=== PATIENT | male | born 1955 | race Caucasian/White ===

== ENCOUNTER 2020-03-03 16:10 | Inpatient (IN) | payer MEDICARE ==
[~2020-03-03] VITALS: Ht 188 cm; Wt 91.4 kg
[~2020-03-03 16:10] MED LIST: Benadryl 50 mg50 MG PO; CYCL10 PO; Naprosyn500 MG PO; Norco 10-325 T1 EACH PO; Pepcid20 MG PO; Prednisone20 MG PO
[2020-03-03 16:51] LABS: BASOPHILS ABSOLUTE AUTO 0.04 K/mm3 (0.00-0.23); BASOPHILS PERCENT AUTO 0 % (0-2); EOSINOPHILS ABSOLUTE AUTO 0.09 K/mm3 (0.00-0.68); EOSINOPHILS PERCENT AUTO 1 % (0-6); Hematocrit 37.4 % (37.0-53.0); Hemoglobin 12.5 g/dL (13.5-17.5); IMMATURE GRAN ABSOLUTE AUTO 0.09 K/mm3 (0.00-0.10); IMMATURE GRAN PERCENT AUTO 1 % (0-1); LYMPHOCYTES ABSOLUTE AUTO 1.68 K/mm3 (0.84-5.20); LYMPHOCYTES PERCENT AUTO 17 % (21-46); MONOCYTES ABSOLUTE AUTO 0.88 K/mm3 (0.16-1.47); MONOCYTES PERCENT AUTO 9 % (4-13); Mean Corpuscular HGB 36.8 pg (26.0-34.0); Mean Corpuscular HGB Conc 33.4 g/dL (31.5-36.5); Mean Corpuscular Volume 110 fL (80-100); Mean Platelet Volume 10.7 fL (9.1-12.4); NEUTROPHILS ABSOLUTE AUTO 6.91 K/mm3 (1.96-9.15); NEUTROPHILS PERCENT AUTO 71 % (41-73); Platelet Count 143 K/mm3 (150-400); RDW Coefficient Variation 15.2 % (11.7-14.2); RDW Standard Deviation 61.8 fL (35.1-46.3); White Blood Cell Count 9.69 K/mm3 (4.00-11.30)
[2020-03-03 17:12] LABS: Alanine Aminotransfer (ALT/SGP 41 U/L (12-78); Albumin, Blood 2.4 g/dL (3.4-5.0); Albumin/Globulin Ratio 0.4 (0.8-1.8); Alk Phos 183 U/L (50-136); Anion Gap 8 mmol/L (6-16); Aspartate Aminotrans (AST/SGOT 92 U/L (12-37); Bilirubin, Total 6.7 mg/dL (0.1-1.0); Blood Urea Nitrogen 41 mg/dL (8-24); Bun/Creatinine Ratio 20.7 (12.0-20.0); CO2, Blood 23 mmol/L (21-32); Calcium, Blood 9.3 mg/dL (8.5-10.1); Chloride, Blood 112 mmol/L (98-108); Creatinine, Blood 1.98 mg/dL (0.60-1.20); Ethanol (Alcohol), Blood, Med <3 mg/dL; Globulin, Blood 5.4 g/dL (2.2-4.0); Glomerular Filtration Rate 36 (60-); Glucose, Blood 138 mg/dL (70-99); Potassium, Blood 4.3 mmol/L (3.5-5.5); Sodium, Blood 143 mmol/L (136-145); Total Protein, Blood 7.8 g/dL (6.4-8.2)
[2020-03-03 19:08] LABS: Source, Urine Clean Catch
[2020-03-03 19:11] LABS: Appearance, Urine Clear (Clear); Blood, Urine Neg (Neg); Color, Urine Amber (P-Yellow); Glucose Qualitative, Urine Neg (Neg); Ketones, Urine 1+ (Neg); Leukocyte Esterase, Urine 1+ (Neg); Nitrite, Urine Neg (Neg); Protein, Urine 1+ (Neg); Urobilinogen, Urine 2+ (Normal)
[2020-03-03 19:32] LABS: Bilirubin, Urine 1+ (Neg)
[2020-03-03 19:34] LABS: Bacteria Few /hpf; Hyaline Casts 0-2 /lpf (0-2); Red Blood Cells, Urine 0-2 /hpf (0-2); Squamous Epithelial Cells Few /hpf (Few)
[2020-03-03 19:43] LABS: International Normalized Ratio 1.36; Prothrombin Time Results 14.3 Sec (9.7-11.5)
[2020-03-03 19:56] LABS: U Amphetamine Screen Not Detected; U Barbituate Screen Not Detected; U Benzodiazapine Screen Not Detected; U Cocaine Screen Not Detected; U Methadone Screen Not Detected; U Methamphetamine Screen Not Detected; U Opiates Screen Not Detected
[2020-03-03 19:57] LABS: U Buprenorphine Screen Not Detected; U Cannabinoids Screen DETECTED; U Oxycodone Screen Not Detected; U Phencyclidine Screen Not Detected; U Propoxyphene Screen Not Detected
[2020-03-03 20:12] LABS: Automated BF WBC Count 0.051 K/mm3 (0-999); Body Fluid WBC Count 51 /mm3 (0-999)
[2020-03-03 20:19] LABS: Magnesium, Blood 1.5 mg/dL (1.6-2.4); Thyroid Stimulating Hormone 4.45 uIU/mL (0.360-4.800); Troponin I 0.123 ng/mL (0.000-0.040)
[2020-03-03 20:22] LABS: RBC Count, Body Fluid 6 /mm3 (0-0)
[2020-03-03 20:23] LABS: Appearance, Body Fluid Clear (Clear); Color, Body Fluid Yellow (None-Yellow)
[2020-03-03 20:26] LABS: Total Cell Count, Body Fluid 100
--- NOTE | 2020-03-04 01:44 | NUR ---
PATIENT ARRIVED TO ROOM 353 AT 2322 VIA STRETCHER. HE IS ALERT AND ORIENTED X2. DENIES ANY PROBLEMS ASKED ABOUT IN HIS MEDICAL HISTORY QUESTIONAIRE. HE IS CONFUSED AND FORGETFUL, BUT IS COOPORATIVE WITH TASKS WHEN EXPLAINED TO HIM. TELE IN PLACE. SKIN TEAR CLEANED AND DRESSED.
[2020-03-04 05:10] LABS: BASOPHILS ABSOLUTE AUTO 0.04 K/mm3 (0.00-0.23); BASOPHILS PERCENT AUTO 0 % (0-2); EOSINOPHILS ABSOLUTE AUTO 0.14 K/mm3 (0.00-0.68); EOSINOPHILS PERCENT AUTO 2 % (0-6); Hematocrit 31.7 % (37.0-53.0); Hemoglobin 10.5 g/dL (13.5-17.5); IMMATURE GRAN ABSOLUTE AUTO 0.07 K/mm3 (0.00-0.10); IMMATURE GRAN PERCENT AUTO 1 % (0-1); LYMPHOCYTES ABSOLUTE AUTO 1.89 K/mm3 (0.84-5.20); LYMPHOCYTES PERCENT AUTO 20 % (21-46); MONOCYTES PERCENT AUTO 12 % (4-13); Mean Corpuscular HGB 36.6 pg (26.0-34.0); Mean Corpuscular HGB Conc 33.1 g/dL (31.5-36.5); Mean Corpuscular Volume 111 fL (80-100); Mean Platelet Volume 10.6 fL (9.1-12.4); NEUTROPHILS PERCENT AUTO 65 % (41-73); Platelet Count 104 K/mm3 (150-400); RDW Coefficient Variation 15.5 % (11.7-14.2); RDW Standard Deviation 62.9 fL (35.1-46.3); Red Blood Cell Count 2.87 M/mm3 (4.30-5.90); White Blood Cell Count 9.34 K/mm3 (4.00-11.30)
[2020-03-04 05:25] LABS: International Normalized Ratio 1.48; Prothrombin Time Results 15.5 Sec (9.7-11.5)
[2020-03-04 05:42] LABS: Albumin, Blood 2.5 g/dL (3.4-5.0); Albumin/Globulin Ratio 0.6 (0.8-1.8); Bilirubin, Total 5.8 mg/dL (0.1-1.0); Bun/Creatinine Ratio 20.8 (12.0-20.0); Calcium, Blood 8.6 mg/dL (8.5-10.1); Creatinine, Blood 1.92 mg/dL (0.60-1.20); Globulin, Blood 4.1 g/dL (2.2-4.0); Potassium, Blood 4.4 mmol/L (3.5-5.5); Total Protein, Blood 6.6 g/dL (6.4-8.2); Troponin I 0.114 ng/mL (0.000-0.040)
--- NOTE | 2020-03-04 06:31 | NUR ---
SHIFT SUMMARY PATIENT ALERT AND ORIENTED X2, HE IS CONFUSED AND SLIGHTLY IRRITABLE, BUT DOES COOPORATE WITH CARE GIVEN TO HIM. IV IN HIS LEFT AC BEGAN LEAKING BLOOD AND WAS REMOVED. IV IN LEFT UPPER ARM PATENT AND INFUSING. NEW IV PLACED IN RIGHT UPPER ARM AND IS PATENT. BED IN LOWEST POSITION WITH WHEELS LOCKED AND ALARM ON. CALL LIGHT WITHIN REACH. REPORT GIVEN TO ONCOMING RN.
--- NOTE | 2020-03-04 11:24 | NUR ---
Echocardiogram completed.
--- NOTE | 2020-03-04 13:11 | NUR ---
Received call from Bedside RN Giovanna reporting family has arrived and is waiting outside to discuss decisions. Requested Giovanna to imform family this RN needs time to review case and can meet with one family member this afternoon. Pt resting in bed with his eyes closed upon arrival. Pt's son Ramirez at bedside. Difficult to assess Pt's orientation and he becomes agitated with questions. Assisted Pt with drinking his milk per Pt's request. Pt drifts back to sleep. Engaged in therapeutic conversation with son Ramirez. Provided update on plan of care. Discussed the importance of appointing decision makers for the future. Ramirez reports due to his inability to retain information well his sister Cony (Pt's daugher) would be primary decision maker and he would be alternate. Educated on disease process and the potential of Pt's life span being dramatically shortened without life style change. Discussed the potential of future care needs as disease progresses. Discussed the importance of family considering Pt's code status and whether Pt would want CPR. Ramirez confirms reports that Pt's has cognitive impairment. Pt's is Ramirez and Cony's step mother. Offered therapeutic listening and answered questions. Ramirez expresses appreciation and reports no other concerns at this time. Ramirez will report what he has learned to rest of family. Spoke with Bedside OSITO Heredia and discussed case. Spoke with Dr Wesley and discussed case. Palliative Care will remain available.
[2020-03-04 14:25] LABS: Albumin, Blood 2.5 g/dL (3.4-5.0)
--- NOTE | 2020-03-04 17:58 | NUR ---
PT AOX1-2 WITH CONFUSION. PT HAS BEEN UNCOMFORTABLE ALL DAY DUE TO HIS DISTENDED ABDOMEN. PT HAS HAD FAMILY IN TO SPEAK WITH THE DOCTOR AND PALLIATIVE CARE. PT WAS TAKEN DOWN FOR PARACENTESIS AND 10L WAS REMOVED AND ALBUMIN STARTED. PT STILL WANTING TO LAY CURLED UP. PT HAS HAD CIWAS AT A 7 AND HAS BEEN TREATED PER EMAR. WILL CONTINUE TO MONITOR. PT'S BP WAS 89/[address] DINH WAS NOTIFIED. MIDORINE WAS ADDED TO EMAR PER DR DINH'S ORDER. WILL CONTINUE TO MONITOR.
[2020-03-04 19:35] LABS: Automated BF WBC Count 0.055 K/mm3 (0-999); Body Fluid WBC Count 55 /mm3 (0-999)
[2020-03-04 19:42] LABS: pH, Body Fluid 7.7
[2020-03-04 19:55] LABS: Albumin, Body Fluid 0.5 g/dL
[2020-03-04 19:56] LABS: Glucose, Body Fluid 133 mg/dL; Lactate Dehydrogenase, Body Fl 55 U/L; Protein, Body Fluid 0.9 g/dL
[2020-03-04 19:58] LABS: Appearance, Body Fluid Clear (Clear); Color, Body Fluid Yellow (None-Yellow); RBC Count, Body Fluid 27 /mm3 (0-0)
[2020-03-04 20:07] LABS: Total Cell Count, Body Fluid 100
--- NOTE | 2020-03-05 00:14 | NUR ---
PATIENT IS CONFUSED AND LETHARGIC. HE IS UNABLE TO ANSWER ORIENTATION QUESTIONS BEYOND HIS NAME AND DATE OF . YE IS VERY MUMBLED AND DIFFICULT TO UNDERSTAND. HE IS IRRITABLE AND EASILY AGITATED WHEN WORKING WITH HIM. VITALS TAKEN AND PATIENT WAS HYPOTENSIVE AND PATIENT VOMITED YELLOW FLUID ON HIS BED. THIS RN ALSO FOUND A LUMP ON THE RIGHT SIDE OF THE PATIENT'S NECK ALONG HIS JAW LINE. DISCUSSED SITUATION WITH CHARGE NURSE, NATE AGUILAR. WILL REASSESS VITALS IN ONE HOUR.
[2020-03-05 05:00] LABS: Hematocrit 32.5 % (37.0-53.0); Hemoglobin 10.7 g/dL (13.5-17.5); Mean Corpuscular HGB Conc 32.9 g/dL (31.5-36.5); Mean Corpuscular Volume 113 fL (80-100); Platelet Count 104 K/mm3 (150-400); RDW Coefficient Variation 15.6 % (11.7-14.2); RDW Standard Deviation 64.1 fL (35.1-46.3); Red Blood Cell Count 2.89 M/mm3 (4.30-5.90); White Blood Cell Count 8.75 K/mm3 (4.00-11.30)
[2020-03-05 05:15] LABS: International Normalized Ratio 1.65; Prothrombin Time Results 17.2 Sec (9.7-11.5)
[2020-03-05 05:27] LABS: Albumin, Blood 3.1 g/dL (3.4-5.0); Albumin/Globulin Ratio 1.1 (0.8-1.8); Bilirubin, Total 5.3 mg/dL (0.1-1.0); Bun/Creatinine Ratio 18.7 (12.0-20.0); Calcium, Blood 8.9 mg/dL (8.5-10.1); Creatinine, Blood 1.87 mg/dL (0.60-1.20); Globulin, Blood 2.7 g/dL (2.2-4.0); Potassium, Blood 4.4 mmol/L (3.5-5.5); Total Protein, Blood 5.8 g/dL (6.4-8.2)
--- NOTE | 2020-03-05 06:21 | NUR ---
SHIFT SUMMARY PATIENT HAS BEEN LETHARGIC ALL NIGHT, RESPONDS TO VERBAL STIMULUS BUT IS DIFFICULT TO UNDERSTAND DUE TO HIS MUMBLING. HE DENIES ALL SYMPTOMS OF WITHDRAWAL WHEN ASKED, BUT IS EASILY AGITATED WHEN CARE IS PROVIDED FOR HIM. HE RESISTS ALL CARE, AND SWEARS WHEN STAFF ARE TRYING TO WORK WITH HIM. BOTH IVS ARE PATENT AND HAVE BEEN FLUSHED. BED IN LOWEST POSITION WITH WHEELS LOCKED AND ALARM ON. CALL LIGHT WITHIN REACH. REPORT GIVEN TO ONCOMING RN.
--- NOTE | 2020-03-05 17:00 | NUR ---
PT AOX1-2 DEPENDING ON HOW AWAKE HE IS. PT HAS BEEN WANTING TO SLEEP MOST OF THE DAY. PT WAS ABLE TO DRINK A COUPLE OF ENSURES TODAY, BUT DID NOT WANT TO EAT ANY FOOD FROM HIS TRAY. PT HAS TO BE INSTUCTED TO SWALLLOW PILLS, BUT WILL WITH INSTRUCTION. PT TREATED FOR PAIN PER EMAR. PT CONTINUES TO HAVE LOW BPs SYTOLIC RUNNING IN THE 90s. DR DINH IS AWARE AT THIS TIME. WILL CONTINUE TO MONITOR.
--- NOTE | 2020-03-05 18:36 | NUR ---
NOTIFIED DR DINH PT HAS BEEN VERY SLEEPY THIS AFTERNOON AND LOW BP CONTINUES TO MAINTAIN SYTOLIC 95. DR DINH DC'D LIBRIUM AND ADDED ATIVAN TO EMAR. WILL CONTINUE TO MONITOR.
--- NOTE | 2020-03-06 05:06 | NUR ---
SUMMARY: PT A/O TO SELF ONLY AND POSSIBLY FAMILY. HE'S VERY DROWSY BUT WAKEFUL TO VOICE AND SLEPT MAJORITY OF SHIFT. CIWAS WERE 3-5, NO PRN ATIVAN NEEDED. HE DOESN'T INTERACT MUCH AND WASN'T ABLE TO ANSWER Q'S BUT DID MUTTER SOME WORDS/NOISES. HE'S VERY STIFF, WEAK AND DECONDITIONED, ON AIRBED FOR SBD PREVENTION AND TURN SCHEDULE WAS MAINTAINED. PT INCONTINENT OF URINE/STOOL, X2 LARGE LOOSE STOOLS HAD. ATTENDS CHANGED PRN W/SKIN CARE DONE. RN HELD SENNA BUT LACTULOSE WAS RECIEVED AT HS. DE DIDN'T APPEAR IN ANY PAIN OR DISTRESS. ABDO REMAINS FIRM/DISTENDED FROM ASCITES. NO ACUTE CHANGES, VSS AND AFEBRILE. OCTEOTRIDE INFUSES VIA L.UA PG. PT CONT'S TO HAVE BP'S 90'S/60'S BUT PT IS ASYMPTOMATIC AND CONT'S NSR AT 70'S BPM PER TELEMETRY. WCTM/REPORT TO DAY RN.
[2020-03-06 07:06] LABS: Bun/Creatinine Ratio 20.9 (12.0-20.0); Calcium, Blood 9.2 mg/dL (8.5-10.1); Creatinine, Blood 1.91 mg/dL (0.60-1.20); Potassium, Blood 4.2 mmol/L (3.5-5.5)
--- NOTE | 2020-03-06 09:32 | NUR ---
FREQUENT DIARRHEA NOTIFIED DR. DINH OF FREQUENT BOWEL MOVEMENTS. RECEIVED VERBAL ORDER TO REDUCE FREQUENCY OF LACTULOSE FROM TID TO BID. EMAR UPDATED.
--- NOTE | 2020-03-06 18:39 | NUR ---
Shift Summary Patient has been lethargic for most of the day, unresponsive until approximately 1630 this afternoon. Patient became increasingly restless asking for water. Mild swelling to R angle of mandible noted this shift, unpainful, absent of redness. CIWA: 0-3. Had 1 BM this shift, med loose. Daughter Cony called for updates and stated will not be in to visit patient d/t living far away. Will pass on to palliative care RN for them to call and discuss advanced care planning over the phone. Vitals have been stable. Tele: SR 68. Patient is now resting comfortably in bed. Will continue to monitor.
--- NOTE | 2020-03-06 19:49 | NUR ---
PT DROWSY BUT MUCH MORE ALERT AND COHERENT TONIGHT. HE'S ANSWERING SOME Q'S CORRECTLY AND WAS ABLE TO SPECIFY PAIN, NEEDING TO VOID AND WANT FOR REPOSITIONING. HE'S CALLING INTO HALLS AND APPEARS CONFUSED W/MORE ANXIETY AND RESTLESSNESS. PT TOLERATING SIPS OF WATER. TURN SCHEDULE Q2H AND PT ON AIRBED.
--- NOTE | 2020-03-07 00:57 | NUR ---
PT TOLERATING PO INTAKE/MEDS AND HAD 2100 DOSE OF PO LACTULOSE EARLY ON DAY SHIFT. NEW ORDER BY IS FOR LACTULOSE ENEMAS TO BE RECIEVED PRN IF PT ISN'T TOLERATING SCHEDULED PO LACTULOSE. MIDNIGHT ENEMA HELD RESULT.
--- NOTE | 2020-03-07 02:00 | NUR ---
CIWA UP TO 8 W/ATIVAN 0.5MG IV PRN RECIEVED FOR GOOD EFFECT AT CALMING PT.
[2020-03-07 05:32] LABS: Bun/Creatinine Ratio 23.4 (12.0-20.0); Calcium, Blood 8.6 mg/dL (8.5-10.1); Creatinine, Blood 1.67 mg/dL (0.60-1.20); Potassium, Blood 4.1 mmol/L (3.5-5.5)
--- NOTE | 2020-03-07 05:41 | NUR ---
SUMMARY: PT CONT'S VERY DROWSY BUT MORE ALERT AND WAKEFUL THAN PREVIOUS NOCTE. HE WAS ABLE TO SPECIFY SOME NEEDS: "MORE WATER", "NEED TO PEE", "BACK HURTS". TYLENOL RECIVED PO PRN CRUSHED IN APPLESAUCE W/O S/S ASPIRATION. TURN SCHEDULE MAINTAINED AND PT ON AIRBED FOR SBD PREVENTION AND IMPROVED COMFORT. HE WAS ASSISTED W/URINAL AND VOIDED VERY SCANT AMT, OTHERWISE PT WAS INCONTINENT OF LOOSE BM AND URINE, SENOKOT HELD. DEXTROSE INFUSES TO TIFFANIE PG. PT BECAME MORE RESTLESS, TREMULOUS AND ANXIOUS THIS SHIFT W/CIWA 4-8, X1 DOSE ATIVAN 0.5MG IV PRN WAS RECIEVED FOR GOOD EFFECT. HE REMAINS NSR AT 60'S-70'S BPM. NO ACUTE CHANGES, VSS/AFEBRILE. PT'S CALLED FOR UPDATE AND WOULD LIKE DAY STAFF TO ATTEMPT TO ALLOW HIM TO HAVE PHONE CONVERSATION IF POSSIBLE. SHE MAY CAME IN W/PT'S DAUGHTER TODAY NOW THAT HE SEEMS MORE COHERENT. WILL ENSURE DAY STAFF ARE AWARE. WCTM AND REPORT TO DAY RN.
--- NOTE | 2020-03-07 09:20 | NUR ---
D/C ALBUMIN & PROVIDER CONSULT Received verbal order from Dr. Wesley to d/c albumin and enter provider consult for Dr. Hilton (GI). Orders updated.
--- NOTE | 2020-03-07 11:30 | NUR ---
Nodule R Angle of Mandible Notified Dr. Wesley of new assessment finding above. Dr. Wesley will return to see patient later today.
--- NOTE | 2020-03-07 15:39 | NUR ---
Received call from Pt's son Ramirez. Answered questions and discussed code status. Ramirez reports him and his sister do not believe Pt would want CPR in his current codition. This RN attempted to visit with Pt. Pt resting with his eyes closed upon. Pt minimally responds to verbal stimuli with minimal attempt to open his eyes and slight moan. Spoke with Bedside RN Luz, discussed case and concerns. Luz reports Pt has been lethargic and not eating well. Called and spoke with both Pt's daughter Cony and son Ramirez. Provided further update and discussed the importance of planning for the future as disease process takes its coarse. Discussed code status further with both children in agreement to change Pt's code status to DNR. Discussed plan for GI to consult. Daughter Cony is requesting GI MD to call her after he reviews Pt's case for an update. Sinan Donnelly's number [phone]. Discussed the potential need for a higher level of care if Pt does not improve and as disease process take its coarse. Family expressed appreciation of visit. Spoke with Dr Wesley and relayed family's decision to make Pt DNR. Changed Pt's code status to DNR per V/O from Dr Wesley. Palliative Care will remain available for supportive and therapeutic visits.
--- NOTE | 2020-03-07 15:41 | NUR ---
Bladder Scan/Straight Cath Output has been minimal, bladder scanned around noon showed >500 cc. Received verbal order from Dr. Wesley to straight cath prn for post void residual of 350 +. Order updated.
--- NOTE | 2020-03-07 18:20 | NUR ---
Shift Summary Patient awakens seldom to verbal stimuli, unable to follow commands but able to specify some needs. Speech continues to be mumbled. Denies pain, appears uncomfortable despite frequent repositioning. Abdomen seems more distended today. Meds have been crushed in applesauce for ease of swallowing, diet changed to puree d/t no teeth. Straight cath completed x1 with minimal output (50cc) despite bladder scan showing >500 cc. Tele: SR 71. US head/neck ordered for R neck swelling. Code status changed to DNR by palliative care RN. Will continue to monitor and report to oncoming RN.
--- NOTE | 2020-03-07 21:09 | NUR ---
DR GASTELUM IN ROOM TO ASSESS PATIENT. NO ORDERS PLACED AT THIS TIME.
--- NOTE | 2020-03-08 05:07 | NUR ---
SHIFT SUMMARY PATIENT HAD NO ACUTE CHANGES OBSERVED. AXO TO SELF AND BEDREST WITH GARBLED SPEECH. SLEEPING BUT AROUSABLE AND LETHARGIC. DR GASTELUM WAS IN TO SEE PATIENT. POWERGLIDE TFIFANIE INTACT. PIV INTACT. SLIP OPERATOR REPORTS NSR 60. VSS/AFEBRILE. DENIES PAIN, SOB, AND N/V. LOOSE STOOLS, ON LACTULOSE. DISTENDED ABDOMEN. TAKES MEDS CRUSHED IN A.S. CALL LIGHT IN REACH. BED IN LOWEST POSITION. WILL CONTINUE TO MONITOR UNTIL DAY SHIFT NURSE ASSUMES CARE.
[2020-03-08 05:51] LABS: Hemoglobin 12.1 g/dL (13.5-17.5)
[2020-03-08 05:56] LABS: International Normalized Ratio 1.6; Prothrombin Time Results 16.7 Sec (9.7-11.5)
[2020-03-08 06:00] LABS: Albumin, Blood 3.2 g/dL (3.4-5.0); Albumin/Globulin Ratio 1.2 (0.8-1.8); Bilirubin, Total 3.7 mg/dL (0.1-1.0); Bun/Creatinine Ratio 22.8 (12.0-20.0); Calcium, Blood 9.1 mg/dL (8.5-10.1); Creatinine, Blood 1.67 mg/dL (0.60-1.20); Globulin, Blood 2.7 g/dL (2.2-4.0); Potassium, Blood 4.1 mmol/L (3.5-5.5); Total Protein, Blood 5.9 g/dL (6.4-8.2)
--- NOTE | 2020-03-08 16:22 | NUR ---
PATIENT HAS HAD NO ACUTE CHANGES. VITALS HAVE BEEN STABLE. HE REMAINS LETHARGC AND SLEEPS MUCH. I HAD TO ADMINISTER HIS MORNING LACTULOSE VIA ENEMA BY FIRST ADDING 700CC OF STERILE WATER- PATIENT TOLERATED WELL. PATIENT WAS UNWILLING TO TAKE THE LACTULOSE BY MOUTH. PATIENT CONTINUES TO REST IN HIS BED. WILL CONTINUE TO MONITOR AND PROVIDE CARE NEEDED.
--- NOTE | 2020-03-09 04:37 | NUR ---
SHIFT SUMMARY PATIENT HAD NO ACUTE CHANGES OBSERVED. AXO TO SELF WITH GARBLED SPEECH AND BEDREST. TAKES MEDS CRUSHED IN APPLESAUCE. POWERGLIDE TIFFANIE AND PIV INTACT. LOFT WORKER REPORTS ST 102. VSS/AFEBRILE. DENIES PAIN, SOB, AND N/V. DISTENDED ABDOMEN. LETHARGIC T/O SHIFT. ON CAMERA WITH A FEW EVENTS OF LEGS COMING OFF BED. CALL LIGHT IN REACH. BED IN LOWEST POSITION AND ALARM ACTIVATED. WILL CONTINUE TO MONITOR UNTIL DAY SHIFT NURSE ASSUMES CARE.
[2020-03-09 05:43] LABS: Hematocrit 32.5 % (37.0-53.0); Mean Corpuscular HGB Conc 33.8 g/dL (31.5-36.5); Mean Corpuscular Volume 109 fL (80-100); Mean Platelet Volume 11.7 fL (9.1-12.4); Platelet Count 89 K/mm3 (150-400); RDW Coefficient Variation 15.6 % (11.7-14.2); RDW Standard Deviation 62.1 fL (35.1-46.3); Red Blood Cell Count 2.97 M/mm3 (4.30-5.90); White Blood Cell Count 9.52 K/mm3 (4.00-11.30)
[2020-03-09 05:58] LABS: Bun/Creatinine Ratio 23.7 (12.0-20.0); Calcium, Blood 8.6 mg/dL (8.5-10.1); Creatinine, Blood 1.73 mg/dL (0.60-1.20); Potassium, Blood 4.5 mmol/L (3.5-5.5)
--- NOTE | 2020-03-09 15:40 | NUR ---
RECEIVED A CALL FROM BRYAN, THE DAUGHTER OF THE PT. BRYAN IS CONCERNED ABOUT HOME SITUATION. SHE STATED THAT SHE LIVES IN [place]; THEREFORE, WON'T BE ABLE TO TAKECARE OF HER DAD WHEN DISCHARGE. SHE ALSO ADDED THAT PT HAS DEMENTIA, AND WOULD NOT QUALIFY TO TAKE CARE OF PT; SINCE THE PT MENTATION DECLINED; MIGHT NEED RESOURCES UPON DISCHARGE.
--- NOTE | 2020-03-09 18:25 | NUR ---
SHIFT SUMMARY PT IS ONLY ALERT TO HIMSELF. PT WORKED WITH PT/OT TODAY. 2P ASSIST MAX. PT GARBLED SPEECH AND HARD TO UNDERSTAND AT TIMES. PT ABD IS DISTENDED AND HARD DUE TO ASCITES. PT DENIES ANY PAIN, NAUSEA OR VOMITING. VSS. LACTULOSE HOLD FOR TONIGHT PER DR ORDER; PT HAD 3X BM TODAY. BED IS IN THE LOWEST POSITION; BED ALARM ON; CALL LIGHTS WITHIN REACH.
--- NOTE | 2020-03-10 06:31 | NUR ---
SHIFT SUMMARY PT IS A 64 Y/O MALE, ADMITTED FOR HEPATORENAL SYNDROME R/T ETOH. HE IS A&O X SELF, IRRITABLE AT TIMES WHILE AWAKE, A 2P MAX ASSIST TO GET UP AND INCONTINENT AT NIGHT. NO C/O PAIN, NAUSEA OR SOB. TELE SHOWED NSR IN THE 80S. VITAL SIGNS OTHERWISE STABLE. NO ACUTE CHANGES IN PT CONDITION NOTED. WILL CONTINUE TO MONITOR AND TREAT PER EMAR UNTIL HAND OFF TO DAY SHIFT RN.
[2020-03-10 07:21] LABS: Hematocrit 31.8 % (37.0-53.0); Hemoglobin 10.5 g/dL (13.5-17.5); Mean Corpuscular HGB 36.6 pg (26.0-34.0); Mean Corpuscular Volume 111 fL (80-100); Mean Platelet Volume 10.9 fL (9.1-12.4); Platelet Count 102 K/mm3 (150-400); RDW Coefficient Variation 15.7 % (11.7-14.2); RDW Standard Deviation 63.6 fL (35.1-46.3); Red Blood Cell Count 2.87 M/mm3 (4.30-5.90); White Blood Cell Count 9.45 K/mm3 (4.00-11.30)
[2020-03-10 07:38] LABS: Albumin, Blood 2.8 g/dL (3.4-5.0); Albumin/Globulin Ratio 0.9 (0.8-1.8); Bilirubin, Total 3.5 mg/dL (0.1-1.0); Bun/Creatinine Ratio 24.3 (12.0-20.0); Calcium, Blood 8.5 mg/dL (8.5-10.1); Creatinine, Blood 1.89 mg/dL (0.60-1.20); Globulin, Blood 3.1 g/dL (2.2-4.0); Magnesium, Blood 1.5 mg/dL (1.6-2.4); Potassium, Blood 4.4 mmol/L (3.5-5.5); Total Protein, Blood 5.9 g/dL (6.4-8.2)
[2020-03-10 07:42] LABS: BAND PERCENT MAN 1 % (0-8); BASOPHILS ABSOLUTE MAN 0.18 K/mm3 (0.00-0.23); BASOPHILS PERCENT MAN 2 % (0-2); EOSINOPHILS ABSOLUTE MAN 0.18 K/mm3 (0.00-0.68); EOSINOPHILS PERCENT MAN 2 % (0-6); LYMPHOCYTES ABSOLUTE MAN 2.55 K/mm3 (0.84-5.20); LYMPHOCYTES PERCENT MAN 27 % (21-46); MONOCYTES ABSOLUTE MAN 0.94 K/mm3 (0.16-1.47); MONOCYTES PERCENT MAN 10 % (4-13); NEUTROPHILS ABSOLUTE MAN 5.57 K/mm3 (1.96-9.15); SEG NEUTROPHILS PERCENT MAN 58 % (41-73); TOTAL CELLS COUNTED 100
[2020-03-10 15:00] LABS: Source, Urine Catheter
[2020-03-10 15:39] LABS: Appearance, Urine Clear (Clear); Bilirubin, Urine Neg (Neg); Blood, Urine 5+ (Neg); Color, Urine Yellow (P-Yellow); Glucose Qualitative, Urine Neg (Neg); Ketones, Urine 1+ (Neg); Leukocyte Esterase, Urine 1+ (Neg); Nitrite, Urine Neg (Neg); Protein, Urine Neg (Neg); Specific Gravity, Urine 1.015 (1.003-1.022); Urobilinogen, Urine 1+ (Normal)
[2020-03-10 15:58] LABS: Bacteria Rare /hpf; Granular Casts 0-2 /lpf (0); Mucus Light (0-Heavy); Renal Epithelial Rare /hpf (0-Rare); Squamous Epithelial Cells Not Seen /hpf (Few); Transitional Epithelial Cells Few /hpf (0-Rare)
--- NOTE | 2020-03-10 16:58 | NUR ---
SHIFT SUMMARY PT AOX2 TO HIMSELF AND FAMILY. DR IRWIN CONSULTED TODAY 03/10 FOR WORSENING RENAL FUNCTION. PT ALSO HAD AN RENAL ULTRASOUND TODAY. PT BP WAS LOW TODAY; PT STARTED ON MIDODRINE TID. NATHAN INSERTED TODAY FOR STRICT I&O- PT HAS AN ORDER FOR 24HR URINE COLLECTION. PT TELE DC'D. PT C/O PAIN AFTER NATHAN INSERTION- MEDICATED PER EMAR. PT NEEDS REORIENT AND REDIRECT AT TIMES. BED IS IN THE LOWEST POSITION; CALL LIGHTS WITHIN REACH.
[2020-03-11 06:08] LABS: BASOPHILS ABSOLUTE AUTO 0.03 K/mm3 (0.00-0.23); BASOPHILS PERCENT AUTO 0 % (0-2); EOSINOPHILS ABSOLUTE AUTO 0.08 K/mm3 (0.00-0.68); EOSINOPHILS PERCENT AUTO 1 % (0-6); Hematocrit 30.1 % (37.0-53.0); Hemoglobin 10.2 g/dL (13.5-17.5); IMMATURE GRAN ABSOLUTE AUTO 0.04 K/mm3 (0.00-0.10); IMMATURE GRAN PERCENT AUTO 0 % (0-1); LYMPHOCYTES ABSOLUTE AUTO 2.76 K/mm3 (0.84-5.20); LYMPHOCYTES PERCENT AUTO 26 % (21-46); MONOCYTES ABSOLUTE AUTO 1.55 K/mm3 (0.16-1.47); MONOCYTES PERCENT AUTO 15 % (4-13); Mean Corpuscular HGB 37.1 pg (26.0-34.0); Mean Corpuscular HGB Conc 33.9 g/dL (31.5-36.5); Mean Corpuscular Volume 110 fL (80-100); Mean Platelet Volume 11.1 fL (9.1-12.4); NEUTROPHILS ABSOLUTE AUTO 6.13 K/mm3 (1.96-9.15); NEUTROPHILS PERCENT AUTO 58 % (41-73); Platelet Count 81 K/mm3 (150-400); RDW Coefficient Variation 15.9 % (11.7-14.2); RDW Standard Deviation 63.4 fL (35.1-46.3); Red Blood Cell Count 2.75 M/mm3 (4.30-5.90); White Blood Cell Count 10.59 K/mm3 (4.00-11.30)
[2020-03-11 06:28] LABS: Albumin, Blood 2.9 g/dL (3.4-5.0); Albumin/Globulin Ratio 0.9 (0.8-1.8); Bilirubin, Direct 1.1 mg/dL (0.0-0.3); Bilirubin, Indirect 3.1 mg/dL (0.1-0.7); Bilirubin, Total 4.2 mg/dL (0.1-1.0); Bun/Creatinine Ratio 26.8 (12.0-20.0); Calcium, Blood 8.9 mg/dL (8.5-10.1); Creatinine, Blood 1.57 mg/dL (0.60-1.20); Globulin, Blood 3.1 g/dL (2.2-4.0); Magnesium, Blood 1.9 mg/dL (1.6-2.4); Potassium, Blood 4.6 mmol/L (3.5-5.5)
--- NOTE | 2020-03-11 06:28 | NUR ---
SHIFT SUMMARY PT IS A 64 Y/O MALE, ADMITTED FOR HEPATORENAL SYNDROM. HE IS A&O X 2, FORGETFUL, AND CURRENTLY A 2P MAX/BEDREST. PT HAD A NATHAN PLACED ON DAY SHIFT FOR 24 HOUR URINE COLLECTION/STRICT I&O. PT REPEATED MULTIPLE TIMES DURING THE NIGHT THAT "I FEEL LIKE I HAVE TO PEE", PULLING ON THE CATHETER AND TRYING TO GET OUT OF BED. CATHETER WAS FLUSHED, WITH NO CLOTS OR BLOCKAGES NOTED. URINE WAS TINGED PINK DURING THE NIGHT AFTER PT HAD BEEN PULLING ON CATHETER. PT REFUSED OFFERED TYLENOL FOR HIS DISCOMFORT. NO C/O NAUSEA OR SOB. PT'S HS BP WAS IN THE 90S SYSTOLIC, BUT INCREASED TO 112/59 BY AM VITALS. PT IS CURRENTLY RECEIVING CLINIMIX @ 50 ML/HR. NO OTHER ACUTE CHANGES IN PT CONDITION NOTED. WILL CONTINUE TO MONITOR AND TREAT PER EMAR UNTIL HAND OFF TO DAY SHIFT RN.
[2020-03-11 15:02] LABS: Protein, Urine Quantitative 58.6 mg/dL (0.0-11.9)
--- NOTE | 2020-03-11 18:00 | NUR ---
SHIFT SUMMARY PT MORE AWAKE TODAY, BUT STILL VERY CONFUSED. PT CONSISTENTLY TRYING TO PULL OUT NATHAN. REORIENTED NEEDED. 24 URINE COLLECTION DONE AT 1450 TODAY, SENT THE URINE TO LAB- SEE RESULTS. DC'D THE NATHAN TODAY. PT ABLE USE THE BSC WITH 2P ASSIST AND USING FWW. PT POOR ORAL INTAKE TODAY; AND PT STATED NOT HUNGRY. DAUGHTER SHANTE FROM [place] CALLED AND STATED THAT SHE MIGHT BE ABLE TO COME DOWN WITH BROTHER AND VISIT PT ON THURSDAY. I ALSO TALKED TO JEANNE WHO IS THE OF PT X5; APPARENTLY THE ALSO HAS DIMENTIA. STILL AWAITS PLACEMENT AT THIS TIME. BED ALARM IS ON AND CALL LIGHTS WITHIN REACH.
[2020-03-12 05:29] LABS: Hematocrit 29.5 % (37.0-53.0)
[2020-03-12 05:50] LABS: Albumin, Blood 2.9 g/dL (3.4-5.0); Anion Gap 7 mmol/L (6-16); Blood Urea Nitrogen 46 mg/dL (8-24); Bun/Creatinine Ratio 30.9 (12.0-20.0); CO2, Blood 21 mmol/L (21-32); Calcium, Blood 8.8 mg/dL (8.5-10.1); Chloride, Blood 113 mmol/L (98-108); Creatinine, Blood 1.49 mg/dL (0.60-1.20); Glomerular Filtration Rate 50 (60-); Glucose, Blood 103 mg/dL (70-99); Magnesium, Blood 1.8 mg/dL (1.6-2.4); Phosphorus, Blood 2.8 mg/dL (2.5-4.9); Potassium, Blood 4.4 mmol/L (3.5-5.5); Sodium, Blood 141 mmol/L (136-145)
--- NOTE | 2020-03-12 06:20 | NUR ---
SHIFT SUMMARY PT IS 64 Y/O MALE, ADMITTED FOR HEPATORENAL SYNDROME. HE IS A&O X 2, IRRITABLE AT TIMES, AND A 2P MX ASSIST OUT OF BED. ABD REMAINS FIRM AND DISTENDED. INCONTINENT, TURN Q2H. NO C/O NAUSEA, PAIN OR SOB. VITAL SIGNS STABLE. PT RECIEVING CLINIMIX @ 50 ML/HR. VITAL SIGNS STABLE. NO ACUTE CHANGES IN PT CONDITION NOTED. WILL CONTINUE TO MONITOR AND TREAT PER EMAR UNTIL HAND OFF TO DAY SHIFT RN.
[2020-03-12 09:09] LABS: HBSAG SCREEN Negative (Negative); HEP B CORE AB, TOT Negative (Negative); HEP C VIRUS AB <0.1 (0.0-0.9)
--- NOTE | 2020-03-12 10:24 | NUR ---
Pt resting in bed and is more alert but still significantly confused. Pt is A&OX1/2. Unable to verbalize appropriate place, reason for stay, and current year. Pt is orientated to self and family. Pt denies pain at this time. Pt appears comfortable. Pt does repeat himself stating wanting to go home and start haying and taking care of his family. Spoke with Dr Polanco and discussed case. Dr Polanco reports hospice discussion with family would be appropriate. Spoke with Caremanalisha Abdalla and discussed case. Called and spoke with Pt's son Ramirez. Provided update and discussed goals of care including hospice and home health. Educated on hospice philosophy with V/U made by Ramirez. Discussed the need to consider gathering family or higher caregivers to assist with Pt's needs. Discussed applying for Medicaid through [employer] as well. Ramirez expresses appreciaiton of conversation and will discuss further with his sister and Pt's spouse. Palliative Care will remain available.
--- NOTE | 2020-03-12 18:27 | NUR ---
PATIENT IS ALERT TO SELF, FAMILY AND FOLLOWING DIRECTIONS. HE WILL GET OUT OF BED OR THE HAIR ON HIS OWN. BED AND CHAIR ALARMS ON. ABDOMEN IS DISTENDED AND FIRM. PATIENT IS HAVING LOOSE BM'S THIS AFTERNOON. PATIENT WILL GET UP TO THE CHAIR FOR A LITTLE WHILE BU SPENT MOST OF HIS DAY SLEEPING IN BED. PATIENT HAS A POOR APPETITE. 1-2 PA TO THE BSC OR BATHROOM WITH GAITBELT AND FWW. THE PATIENT WAS ABLE TO TAKL WITH HIS OVER THE PHONE TODAY. WILL CONTINUE TO MONITOR
--- NOTE | 2020-03-13 05:05 | NUR ---
SAP ARCHITECT SUMMARY PT A&O TO SELF AND FAMILY. ABLE TO MAKE NEEDS KNOWN. CONFUSED, EASILY REDIRECTABLE. PT HAS EPISODES OF BEING IRRITABLE DURING CARE. PT USES A URINAL BUT HAD A EPISODE OF INCONTINENCE THIS SHIFT. PT HAS NO C/O PAIN OR DISCOMFORT THIS SHIFT. DENIES SOB, CP, OR N&V. CALM AND RESTED IN BED AT THIS TIME. BED AT LOWEST POSITION. CALL LIGHT WITHIN REACH.
[2020-03-13 08:06] LABS: Albumin, Blood 2.8 g/dL (3.4-5.0); Anion Gap 6 mmol/L (6-16); Blood Urea Nitrogen 49 mg/dL (8-24); Bun/Creatinine Ratio 33.1 (12.0-20.0); CO2, Blood 20 mmol/L (21-32); Calcium, Blood 8.8 mg/dL (8.5-10.1); Chloride, Blood 115 mmol/L (98-108); Creatinine, Blood 1.48 mg/dL (0.60-1.20); Glomerular Filtration Rate 51 (60-); Glucose, Blood 107 mg/dL (70-99); Magnesium, Blood 1.7 mg/dL (1.6-2.4); Phosphorus, Blood 3.1 mg/dL (2.5-4.9); Potassium, Blood 4.6 mmol/L (3.5-5.5); Sodium, Blood 141 mmol/L (136-145)
[2020-03-13 08:41] LABS: Hematocrit 30.2 % (37.0-53.0); Hemoglobin 10.2 g/dL (13.5-17.5)
--- NOTE | 2020-03-13 17:47 | NUR ---
PATIENT IS ALERT AND ORIENTED TO SELF, FAMILY AND FOLLOWING DIRECTIONS. DR. GASTELUM SAW THE PATIENT THIS AFTERNOON. THE PATIENT HAS HAD A POOR APPETITE TODAY, REFUSING ALL MEALS AND DRINKING ONLY MILK. PATIENT HAS LOOSE STOOLS. HE HAD THREE BM'S TODAY. ATTENDS IN PLACE. HE REFUSED PT AND OT TODAY. HE SLEPT IN BED MOST OF THE DAY. NO NEW CONCERNS. WILL CONTINUE TO MONITOR.
--- NOTE | 2020-03-14 05:02 | NUR ---
SUPERVISOR WATER SOFTENER SERVICE SUMMARY PT A&O TO SELF AND FAMILY. CONFUSED, EASILY REDIRECTABLE. PLEASANT AND COOPERATIVE TO CARE. 2P ASSIST TO BSC. HAD MULTIPLE EPISODES OF INCONTINENCT THIS SHIFT. NO C/O PAIN OR DISCOMFORT. DENIES CP, SOB, AND N&V. CALM AND RESTED IN BED T/O SHIFT. BED AT LOWEST POSITION, ALARM ON, AND CALL LIGHT WITHIN REACH.
[2020-03-14 05:17] LABS: Hematocrit 28.2 % (37.0-53.0); Hemoglobin 9.4 g/dL (13.5-17.5)
[2020-03-14 05:29] LABS: International Normalized Ratio 1.33
[2020-03-14 05:41] LABS: Albumin, Blood 2.9 g/dL (3.4-5.0); Anion Gap 8 mmol/L (6-16); Blood Urea Nitrogen 51 mg/dL (8-24); Bun/Creatinine Ratio 33.1 (12.0-20.0); CO2, Blood 19 mmol/L (21-32); Calcium, Blood 8.9 mg/dL (8.5-10.1); Chloride, Blood 111 mmol/L (98-108); Creatinine, Blood 1.54 mg/dL (0.60-1.20); Glomerular Filtration Rate 48 (60-); Glucose, Blood 97 mg/dL (70-99); Magnesium, Blood 1.7 mg/dL (1.6-2.4); Phosphorus, Blood 3.4 mg/dL (2.5-4.9); Potassium, Blood 4.4 mmol/L (3.5-5.5); Sodium, Blood 138 mmol/L (136-145)
--- NOTE | 2020-03-14 18:16 | NUR ---
SHIFT SUMMARY PT A/O X2 AND COOPERATIVE WITH CARE. BEEN INCONT FOR THE MAJORITY OF THE SHIFT. 2 ASSIST TO THE BSC. REFUSED HIS LACTULOSE THIS AM. PT AWAITING PLACEMENT. VSS; CALL LIGHT IN REACH.
--- NOTE | 2020-03-15 05:37 | NUR ---
SHIFT SUMMARY- PT. A&O, WITH INTERMITTENT CONFUSION. ON BEDREST THIS SHIFT. HAD 2 BM'S IN BRIEF DURING THE NIGHT. NO COMPLAINTS OF PAIN, REFUSED PM LACTULOSE. PT. BP LOW LAST NIGHT, INPROVED SOME THIS AM. DENIES ANY NEEDS AT THIS TIME. AWAITING PLACEMENT. CALL LIGHT WITHIN REACH AND SIDE RAILS UPX2. WILL CONT TO MONITOR.
[2020-03-15 08:15] LABS: Hematocrit 28.3 % (37.0-53.0); Hemoglobin 9.5 g/dL (13.5-17.5)
[2020-03-15 08:31] LABS: Albumin, Blood 2.8 g/dL (3.4-5.0); Anion Gap 9 mmol/L (6-16); Blood Urea Nitrogen 48 mg/dL (8-24); Bun/Creatinine Ratio 30.6 (12.0-20.0); CO2, Blood 20 mmol/L (21-32); Calcium, Blood 8.7 mg/dL (8.5-10.1); Chloride, Blood 110 mmol/L (98-108); Creatinine, Blood 1.57 mg/dL (0.60-1.20); Glomerular Filtration Rate 47 (60-); Glucose, Blood 107 mg/dL (70-99); Magnesium, Blood 1.7 mg/dL (1.6-2.4); Phosphorus, Blood 3.3 mg/dL (2.5-4.9); Sodium, Blood 139 mmol/L (136-145)
--- NOTE | 2020-03-15 18:13 | NUR ---
SHIFT SUMMARY PATIENT ALERT AND ORIENTED, FORGETFUL THIS SHIFT. PATIENT COOPERATIVE WITH CARE, YET CONTINUOUSLY STATES HE JUST WANTS TO GO HOME. PATIENT WORKED WITH PT THIS SHIFT AND WALKED INTO THE NAM. PATIENT UP TO THE RECLINER FOR LUNCH. PATIENT LAYING IN BED THE REST OF THE SHIFT, FREQUENTLY SPEAKING WITH HIS SPOUSE ON THE PHONE. PATIENT CURRENTLY LAYING IN BED.
--- NOTE | 2020-03-16 05:55 | NUR ---
SHIFT SUMMARY- NO ACUTE EVENTS OVERNIGHT. PT. SLEPT ON/OFF DURING THE NIGHT, NO APPARENT DISTRESS NOTED. APPEARS VERY WEAK HAVING AND PAINFUL. MEDICATED PER EMAR WITH GOOD EFFECT. PT. INCONT, ATTENDS IN PLACE. PLAN FOR POSS D/C TODAY TO HOME. CALL LIGHT WITHIN REACH AND SIDE RAILS UPX2. WILL CONT TO MONITOR.
[2020-03-16 11:27] LABS: Percent Saturation 75.9 % (20.0-50.0)
--- NOTE | 2020-03-16 11:47 | NUR ---
pt son called for update. review of pt. He is up in chair more coherent mad he has to stay another day. Got him some readers will continue to monitor. will follow up with son on father prognosis and future needs.
[2020-03-16 14:10] LABS: Stool Occult Blood Guaiac 1 Neg (Neg)
--- NOTE | 2020-03-16 17:45 | NUR ---
SHIFT SUMMARY PATIENT ALERT AND ORIENTED THIS SHIFT. PATIENT UP TO THE RECLINER EARLY THIS AM, SAT UP IN CHAIR UNTIL LUNCH TIME. DECISION WAS MADE TO HOLD DISCHARGE UNTIL AFTER REPEAT PARACENTESIS. 10L OF FLUID REMOVED. PATIENT BACK TO ROOM EARLY THIS AFTERNOON. PATIENT HAS BEEN SLEEPING SINCE, ALBUMIN CURRENTLY BEING ADMINISTERED.
--- NOTE | 2020-03-17 05:50 | NUR ---
DISPENSARY CLERK SUMMARY PT A/O X2-3. CANNOT RECALL THE CORRECT MONTH. PT ASKS STAFF IF THEY HEARD "WOLVES" X2 TONIGHT. PT HAD MULTIPLE LIQUIDY BOWEL MOVEMENTS TONIGHT. ABD STILL VERY DISTENDED, HOWEVER IT IS TENDER AND NOT FIRM. INCONTIENT TO BOWEL. CALL LIGHT WITHIN REACH, BED ALARM ON. WILL CONTINUE TO MONITOR.
[2020-03-17 07:30] LABS: BASOPHILS ABSOLUTE AUTO 0.03 K/mm3 (0.00-0.23); BASOPHILS PERCENT AUTO 0 % (0-2); EOSINOPHILS ABSOLUTE AUTO 0.11 K/mm3 (0.00-0.68); EOSINOPHILS PERCENT AUTO 1 % (0-6); Hematocrit 30.1 % (37.0-53.0); IMMATURE GRAN ABSOLUTE AUTO 0.05 K/mm3 (0.00-0.10); IMMATURE GRAN PERCENT AUTO 1 % (0-1); LYMPHOCYTES ABSOLUTE AUTO 1.56 K/mm3 (0.84-5.20); LYMPHOCYTES PERCENT AUTO 14 % (21-46); MONOCYTES ABSOLUTE AUTO 1.45 K/mm3 (0.16-1.47); MONOCYTES PERCENT AUTO 13 % (4-13); Mean Corpuscular HGB 36.6 pg (26.0-34.0); Mean Corpuscular HGB Conc 33.2 g/dL (31.5-36.5); Mean Corpuscular Volume 110 fL (80-100); Mean Platelet Volume 10.5 fL (9.1-12.4); NEUTROPHILS ABSOLUTE AUTO 7.74 K/mm3 (1.96-9.15); NEUTROPHILS PERCENT AUTO 71 % (41-73); Platelet Count 109 K/mm3 (150-400); RDW Coefficient Variation 15.8 % (11.7-14.2); RDW Standard Deviation 63.9 fL (35.1-46.3); Red Blood Cell Count 2.73 M/mm3 (4.30-5.90); White Blood Cell Count 10.94 K/mm3 (4.00-11.30)
[2020-03-17] MEDS ORDERED: ACET325 PO (11:33)
[2020-03-17] MEDS ORDERED: VITAMIN B PO (11:34)
[2020-03-17] MEDS ORDERED: LACT10SY PO (11:35)
[2020-03-17] MEDS ORDERED: SPIR25 PO (11:36)
[2020-03-17] MEDS ORDERED: FURO20 PO (11:36)
[2020-03-17] MEDS ORDERED: Vitamin B-Comp1 EACH PO (11:37)
--- NOTE | 2020-03-17 14:12 | NUR ---
REVIEWED D'C WITH PATIENT. AWARE HAS MEDS AT [facility]. REVIEW MEDS. AWARE NEEDS TO CALL AND SET UP APPT. AWARE NEEDS TO FIND PCP EITHER AT [facility] OR [facility]. PATIENT TO MAKE APPTS ON THURSDAY. AWARE CAN RETURN TO [facility] IF NEEDED. AWARE CAN GET PCP TO ORDER HOME HEALTH. ANSWER ALL QUESTIONS. AWAITING RIDE HOME.
[2020-03-17] MEDS ORDERED: MIDO5 PO (14:37)
== END 2020-03-17 15:20 | disposition home or self-care (01) | DRG 441 ==
LOC: ER 16:10 → MEDS 21:58
PROVIDERS: Emergency Medicine; Internal Medicine; Internal Medicine Gastroenterology; Internal Medicine Nephrology; ADMIT Internal Medicine
PROC: 0W9G3ZZ Drainage of Peritoneal Cavity, Percutaneous Approach (ICD-10-PCS; principal; 2020-03-04)
PROC: 0W9G3ZZ Drainage of Peritoneal Cavity, Percutaneous Approach (ICD-10-PCS; 2020-03-11)
DX: K72.00 Acute and subacute hepatic failure without coma (principal); K76.7 Hepatorenal syndrome; G92 Toxic encephalopathy; E87.0 Hyperosmolality and hypernatremia; I24.8 Other forms of acute ischemic heart disease; N17.9 Acute kidney failure, unspecified; K76.6 Portal hypertension; E44.0 Moderate protein-calorie malnutrition; E87.1 Hypo-osmolality and hyponatremia; E87.2 Acidosis; K70.31 Alcoholic cirrhosis of liver with ascites; D63.8 Anemia in other chronic diseases classified elsewhere; F03.90 Unspecified dementia, unspecified severity, without behavioral disturbance, psychotic disturbance, mood disturbance, and anxiety; F10.20 Alcohol dependence, uncomplicated; F17.210 Nicotine dependence, cigarettes, uncomplicated; Z51.5 Encounter for palliative care; N18.30 Chronic kidney disease, stage 3 unspecified; I95.9 Hypotension, unspecified; Z68.28 Body mass index [BMI] 28.0-28.9, adult; E88.09 Other disorders of plasma-protein metabolism, not elsewhere classified; E86.9 Volume depletion, unspecified
CPT/HCPCS: 36415; 49083; 70450; 76536; 76705; 76770; 80048; 80053; 80069; 81001; 81050; 82040; 82042; 82105; 82140; 82248; 82272; 82550; 82607; 82728; 82746; 82945; 82947; 83540; 83550; 83615; 83735; 83986; 84156; 84157; 84295; 84300; 84443; 84484; 84550; 85014; 85018; 85025; 85027; 85610; 86704; 86708; 86803; 87070; 87086; 87205; 87340; 88108; 89051; 93005; 93010; 93306; 94760; 96372-59; 96374; 97116; 97162; 97166; 97530; 97535; 99285-25; A9270; C1751; C9113; G0480; J1650; J2060; J2354; J3411; J3475; J7050; J7070; P9041; P9046; U0004

== ENCOUNTER 2020-06-06 10:47 | Observation (INO) | payer MEDICARE ==
[~2020-06-06] VITALS: Ht 180.3 cm; Wt 68.0 kg
[~2020-06-06 10:47] MED LIST changes: +ACET325 PO; +FURO20 PO; +LACT10SY PO; +MIDO5 PO; +SPIR25 PO; +VITAMIN B PO; +Vitamin B-Comp1 EACH PO
[2020-06-06 11:42] LABS: PCO2 Arterial 22.6 mmHg (35-45); PO2 Arterial 65.1 mmHg (80-100); pH Blood Arterial 7.55 (7.35-7.45)
--- NOTE | 2020-06-06 11:55 | NUR ---
ED Palliative Care Consult Spoke with Dr Saucedo and discussed case. Pt unresponsive and has liver disease. Family reports Pt has POLST that is not signed by MD. Pt wishes are DNR. Family on their way in. Pt resting on gurney and is non responsive. ED RN Masha will place Ramires Catheter. Plan: Will discuss goals of care with family when they arrive.
[2020-06-06 12:04] LABS: BASOPHILS PERCENT AUTO 0 % (0-2); EOSINOPHILS PERCENT AUTO 0 % (0-6); Hematocrit 24.3 % (37.0-53.0); Hemoglobin 8.4 g/dL (13.5-17.5); IMMATURE GRAN ABSOLUTE AUTO 0.09 K/mm3 (0.00-0.10); IMMATURE GRAN PERCENT AUTO 1 % (0-1); LYMPHOCYTES ABSOLUTE AUTO 0.86 K/mm3 (0.84-5.20); LYMPHOCYTES PERCENT AUTO 11 % (21-46); MONOCYTES ABSOLUTE AUTO 1.61 K/mm3 (0.16-1.47); MONOCYTES PERCENT AUTO 20 % (4-13); Mean Corpuscular HGB 34.3 pg (26.0-34.0); Mean Corpuscular HGB Conc 34.6 g/dL (31.5-36.5); Mean Corpuscular Volume 99 fL (80-100); Mean Platelet Volume 9.9 fL (9.1-12.4); NEUTROPHILS ABSOLUTE AUTO 5.37 K/mm3 (1.96-9.15); NEUTROPHILS PERCENT AUTO 68 % (41-73); Platelet Count 153 K/mm3 (150-400); RDW Coefficient Variation 21.5 % (11.7-14.2); RDW Standard Deviation 75.6 fL (35.1-46.3); Red Blood Cell Count 2.45 M/mm3 (4.30-5.90); White Blood Cell Count 7.93 K/mm3 (4.00-11.30)
[2020-06-06 12:08] LABS: Source, Urine Catheter
[2020-06-06 12:14] LABS: Appearance, Urine Clear (Clear); Blood, Urine 1+ (Neg); Color, Urine Yellow (P-Yellow); Glucose Qualitative, Urine Neg (Neg); Ketones, Urine 1+ (Neg); Leukocyte Esterase, Urine 1+ (Neg); Nitrite, Urine Neg (Neg); Protein, Urine 1+ (Neg); Specific Gravity, Urine 1.015 (1.003-1.022); Urobilinogen, Urine 2+ (Normal)
[2020-06-06 12:15] LABS: Alanine Aminotransfer (ALT/SGP 25 U/L (12-78); Albumin, Blood 1.9 g/dL (3.4-5.0); Albumin/Globulin Ratio 0.4 (0.8-1.8); Alk Phos 121 U/L (50-136); Anion Gap 13 mmol/L (6-16); Aspartate Aminotrans (AST/SGOT 77 U/L (12-37); Bilirubin, Total 6.3 mg/dL (0.1-1.0); Blood Urea Nitrogen 68 mg/dL (8-24); Bun/Creatinine Ratio 26.2 (12.0-20.0); CO2, Blood 20 mmol/L (21-32); Calcium, Blood 8.4 mg/dL (8.5-10.1); Chloride, Blood 108 mmol/L (98-108); Ethanol (Alcohol), Blood, Med <3 mg/dL; Globulin, Blood 4.5 g/dL (2.2-4.0); Glomerular Filtration Rate 26 (60-); Glucose, Blood 104 mg/dL (70-99); Potassium, Blood 3.6 mmol/L (3.5-5.5); Sodium, Blood 141 mmol/L (136-145); Total Protein, Blood 6.4 g/dL (6.4-8.2)
[2020-06-06 12:32] LABS: U Amphetamine Screen Not Detected; U Barbituate Screen Not Detected; U Benzodiazapine Screen Not Detected; U Cannabinoids Screen DETECTED; U Methamphetamine Screen Not Detected
[2020-06-06 12:33] LABS: U Buprenorphine Screen Not Detected; U Cocaine Screen Not Detected; U Methadone Screen Not Detected; U Opiates Screen Not Detected; U Oxycodone Screen Not Detected; U Phencyclidine Screen Not Detected; U Propoxyphene Screen Not Detected
[2020-06-06 12:49] LABS: Influenza A, PCR Negative (NEGATIVE); Influenza B, PCR Negative (NEGATIVE); Resp Syncytial Virus, PCR Negative (NEGATIVE); SARS-Cov-2 (COVID-19) PCR, MMC Negative (NEGATIVE)
[2020-06-06 13:01] LABS: Bilirubin, Urine 1+ (Neg)
[2020-06-06 13:04] LABS: Bacteria Mod /hpf; Squamous Epithelial Cells Few /hpf (Few)
--- NOTE | 2020-06-06 13:20 | NUR ---
Pt remain in ED room, resting on gurney with his eyes closed. Pt is non responsive. Pt appears significantly more comfortable from previous visit. Mild secretions noted. Called and spoke with Pt's spouse Vesna. Engaged in therapeutic conversation regarding goals of care. Vesna reports Pt has been stating he is ready to dye. Vesna reports goal is to allow Pt a natural comfortable passing. Discussed hospice as an option with Vesna reporting inability to provide proper care for Pt at this time. Vesna reports being wheel chair bound. Pt has been un responsive since yesterday. Vesna reports prior to this Pt spent most of his time in bed but was able to ambulate short distances on his own. Vesna reports financial inability to hire caregivers to assist with care. Vesna is agreeable to complete a POLST with this RN over the phone. Placed Vesna on speaker and confirmed Pt's wishes for DNR and Comfort Measures Only with hospitalist Olayinka as witness to conversation. Vesna expresses appreciation. Spoke with Dr Saucedo, Linux Unix Administrator Belén, and hospitalist Olayinka. Belén will explore the possibility of getting Pt placed to higher level of care today with hospice. Olayinka signs POLST. Will obtain copy of POLST and deliver to medical records. Palliative Care will remain available.
--- NOTE | 2020-06-06 15:47 | NUR ---
ER ADMIT- PT ARRIVED TO ROOM 350 VIA GURNEY FROM ED. PT A 3 PERSON SLIDE INTO BED. PT COMFORT CARE STATUS, DNR WRISTBAND PLACED. PT UNRESPONSIVE. LS COARSE T/O, ON ROOM AIR, RESPIRATIONS LABORED. NATHAN PATENT AND DRAINING LAUREN URINE. PT NOTED TO HAVE BRUISING TO BILATERAL KNEES AND SCATTERED T/O WITH SKIN TEAR TO RIGHT WRIST. PRESSURE SORES TO BILAT HIPS, SACRAL, LEFT BUTTOCK CREASE, SORE TO TIP OF PENIS AND PURPLE HEELS, LEFT > RIGHT. BED BATH COMPLETED. HEEL PROTECTORS PLACED WELL DRESSING TO OPEN SORES. PHOTOS TAKEN AND PLACED IN CHART. PT DOES NOT APPEAR TO BE IN ANY DISTRESS. PER SPOUSE JEANNE FAMILY REQUESTING [facility] . NO FAMILY PRESENT AT THIS TIME.
--- NOTE | 2020-06-06 17:45 | NUR ---
Spiritual care note: Fabien was alone in room although it was visiting hours. He did not respond to voice or touch. He appears comfortable. Breaths even, unlabored. I sat with him for awhile providing presence of love. He is non-baptist and had declined prayer in the past. I will remain available to pt and family.
--- NOTE | 2020-06-07 07:51 | NUR ---
JERSON APPEARED TO REST COMFORTABLY OVERNIGHT...HE NEVER WOKE HE WAS TURNED, OR CLEANSED. TOWARDS THE MORNING, HE HAD SOME RATTLING IN HIS CHEST AND UPPER AIRWAYS. WAS ABLE TO GET 1-2 GTTS OF ATROPINE IN HIS CHEEK WITH A LITTLE BIT OF DIFFICULTY. PATIENT WOULD CLOSE HIS MOUTH EACH TIME HE SENSED ME. OVERALL, VERY LITTLE CHANGE OVERNIGHT.
--- NOTE | 2020-06-07 09:46 | NUR ---
Comfort Care Visit Pt resting in bed with his eyes closed. Pt is non responsive to gentle verbal stimuli. Pt appears comfortable with no S/S of distress at this time. Spoke with Bedside RN Masha and discussed case. No concerns reported. Palliative Care will remain available.
--- NOTE | 2020-06-07 16:59 | NUR ---
Spiritual care note: Fabien appears about the same as yesterday. He is not responsive to voice or touch. Breaths even with slight rattle. He appears comfortable. No family present. Provided presence. I will remain available.
--- NOTE | 2020-06-07 19:05 | NUR ---
SHIFT SUMMARY PT HAS BEEN UNRESPONSIVE SINCE THIS MORNING. REPOSITIONED FOR COMFORT. HAS SHOWN NO RESPONSE WITH REPOSTIONING. DID HAVE GURGLING WITH BREATHING UNTIL REPOSITIONED AND MOVED TO ROOM 312 AND NO FURTHER GURGLING HEARD. WIFES DAUGHTER IN TO SEE PT FOR SHORT TIME THIS AFTERNOON.
--- NOTE | 2020-06-08 08:20 | NUR ---
PT WAS ABLE TO VERBALIZE THAT HE WANTED A POSITION CHANGE AND SODA TO DRINK. PT WAS ABLE TO SWALLOW A SMALL AMOUNT OF SODA DROPPED UNDER HIS TONGUE.
--- NOTE | 2020-06-08 14:11 | NUR ---
PAL CARE COMFORT CARE VISIT - approx one hour ago. Pt asleep/unresponsive to voice or touch. He is positioned with HOB elevated. Jaundice noted and dk yellow to vania urine in avalos drainage bag. Respirations even, unlabored, quiet. I did not hear secretions. No family present at the time of my visit. Pt has furrowed brow but no other nonverbal indicators of pain, anxiety, restlessness or distress. Pal Care to cont to follow for s/s management. Pt is being given morphine approx 1-2 x daily and ativan prn. He appears to have adequate rxs to manage s/s at this time.
--- NOTE | 2020-06-08 17:48 | NUR ---
PT RESTING IN BED AFTER PERICARE. PT ABLE TO STATE HIS NEEDS. PT SPOKE WITH AND DAUGHTER THIS SHIFT AND WAS ABLE TO COMMUNICATE WELL OVER THE PHONE. PT REMAINS BEDBOUND WITH FC. PT IV LINE IS PATENT AND WNL AND HE MAKES NO COMPLAINTS AT THIS TIME. STAFF WILL CONT. TO MONITOR FOR COMFORT.
--- NOTE | 2020-06-08 19:15 | NUR ---
ASSUMED CARE RECEIVED REPORT FROM OSITO MAYNARD. PT RESTING COMFORTABLE, IN NO ACUTE DISTRESS, RESPS E/U. NO ACUTE NEEDS ASSESSED AT THIS TIME. CALL LIGHT, POSSESSIONS IN REACH, BED IN LOW POSITION. CONTINUE TO MONITOR.
--- NOTE | 2020-06-08 19:26 | NUR ---
PT HAS BEEN RESTING IN BED ALL SHIFT WITH Q2 POSITION CHANGES. PT MAKES NO COMPLIANTS AT THIS MOMENT. PT SPOKE WITH FAMILY OVER THE PHONE AND WAS ABLE TO COMMUNICATE WELL. IV WNL AND SL. PT WILL CONTINUE TO BE MONITORED FOR COMFORT.
--- NOTE | 2020-06-09 07:06 | NUR ---
SHIFT SUMMARY PT RESTING COMFORTABLY, NO ACUTE DISTRESS NOTED. HAS SLEPT T/O MUCH OF NIGHT. PT MOANS INTERMITTENTLY, WITH PERIODS OF COHERENT SPEECH. REPOSITIONED TOLERATED. KEPT CLEAN AND DRY. NATHAN CATHETER PATENT AND DRAINING TO GRAVITY, TUBING FREE OF KINKS. PAIN MANAGED WITH MEDS PER EMAR. NO ACUTE NEEDS ASSESSED AT THIS TIME. CALL LIGHT, POSSESSIONS IN REACH, BED IN LOW POSITIO. REPORT GIVEN TO OSITO MAYNARD.
--- NOTE | 2020-06-09 18:17 | NUR ---
PT IS RESTING IN BED AFTER BOTH IVS DC'D FROM INFILTRATION. SL MEDICATIONS ORERED, SEE EMAR. PT IS ALERT AND ORIENTED TO SELF AND SUROUNDINGS. PT REMAINS ON BEDREST AND COMFORT CARE. PT SUCK AND SWALLOW REFLEX ARE WORKING AND WAS ABLE TO DRINK DRINK 1 MILK AND 1 ORANGE JUICE THIS SHIFT. PT IS ABLE TO VERBALIZE HIS NEEDS, HOWEVER HIS VOICE IS GARBLED. PT TURNED Q2 AND COMFORT PROVIDED. STAFF WILL CONT. TO MONITOR.
--- NOTE | 2020-06-09 19:20 | NUR ---
ASSUMED CARE RECEIVED REPORT FROM OSITO MAYNARD. PT RESTING IN BED COMFORTABLY, IN NO ACUTE DISTRESS, RESPS E/U. RECENTLY MEDICATED FOR ANXIETY PER DAY RN. APPEARS TO BE AT EASE. NO ACUTE NEEDS ASSESSED AT THIS TIME. CALL LIGHT, POSSESSIONS IN REACH, BED IN LOW POSITION. CONTINUE TO MONITOR AND PROVIDE FOR COMFORT.
--- NOTE | 2020-06-10 06:55 | NUR ---
SHIFT SUMMARY PT RESTING, NO ACUTE DISTRESS NOTED. NO ACUTE CHANGES IN CONDITION T/O NIGHT, REPOSITIONED AND COMFORT LEVEL MAINTAINED. NO ACUTE NEEDS ASSESSED AT THIS TIME. CALL LIGHT, POSSESSIONS IN REACH. REPORT GIVEN TO OSITO MAYNARD.
--- NOTE | 2020-06-10 19:26 | NUR ---
PT RESTING IN BED, COMFORTABLE, MAKING NO COMPLAINTS OF PAIN. PT TURNED Q2 HOURS. NO IV ACCESS NEEDED. STAFF WILL CONT. TO MONITOR FOR COMFORT.
--- NOTE | 2020-06-11 04:57 | NUR ---
SHIFT SUMMARY PT RESTING COMFORTABLY IN BED, PER DAY SHIFT HE HAS BEEN MOSTLY NON-VERBAL, PT DOES NOT ALWAYS WAKE WHEN REPOSITIONED OR PROVIDED CARE. PT DID WAKE DURING CHECK AROUND 2229 EXPRESSING HE WAS IN PAIN BUT UNABLE TO LOCALIZE OR DESCRIBE, PROVIDED ROXINOL SL MORPHINE PER EMAR, PT APPEARED TO RELAX A LITTLE AND WAS ABLE TO REST. SOME REPOSITIONING DONE INDEPENDENTLY BY PT BUT MOST WAS W/ NURSE/ACCESS CLINICIAN ASSISTANCE. HEEL PADDING IN PLACE. CALL LIGHT IN REACH, WILL CONTINUE TO MONITOR AND REPORT TO ONCOMING DAY RN.
--- NOTE | 2020-06-11 07:50 | NUR ---
@ ONSET OF SHIFT PT APPEARS IN DEEP SLEEP, DEEP RESPIRATIONS. HE OPENS EYES w VERBAL STIM, ATTEMPTS TO SPEAK HOWEVER UNINTELLIBIBLE. BUE TREMULOUS, HE APPEARS RESTLESS, S/S PAIN w MOVEMENT. PRN ROXANOL GIVEN TO ASSSIST W COMFORT CARE. PT REPOSITIONED FOR COMFORT. NATHAN CATH PATENT, GIANCARLO DILLONK YELLOW URINE.
--- NOTE | 2020-06-11 10:38 | NUR ---
Comfort Care Visit Pt resting in bed with his eyes closed upon arrival. Accompanied by nursing assistant Shilo. Pt opens his eyes to gentle verbal stimuli. Pt reports being cold. Covered Pt with blanket with Shilo offering additional blanket for warmth. No other S/S of distress noted at this time. Spoke with Bedside RN Fredrick and discussed case. Roxanol offered for comfort. Reviewed other comfort medications as needed. Palliative Care will remain available.
--- NOTE | 2020-06-11 11:43 | NUR ---
DR YOO CAME IN TO SEE PT, NO NEW ORDERS @ THIS TIME. PALLIATIVE CARE RN CAME BY TO CHECK ON HIM STATE MORE ALERT THAN PREVIOUS DAYS.
--- NOTE | 2020-06-11 13:12 | NUR ---
PT FAMILY IN TO VISIT. PT OPENS EYES, HE CAN NOT MAKE CONVERSATION, HE DOES ASK FOR WATER, STATES HUNGER. SM BITES APPLESAUCE GIVEN. PT GIVEN WET SPONGES, FAMILY EDUCATED ONLY SM AMTS & ONLY @ PT REQUEST, ASP RISK EXPLAINED. PRN ROXANOL 10MG GIVEN. ENTRY LEVEL RECEPTIONIST & DR NOTIFIED THAT FAMILY IS HERE.
--- NOTE | 2020-06-11 13:17 | NUR ---
DR & FILTER TENDER IN TO SEE PT/FAMILY. PT RESTING QUIETLY @ THIS TIME.
--- NOTE | 2020-06-11 14:14 | NUR ---
Spoke with Dr Edge and discussed case. F/U visit this afternoon. Pt resting in bed upon arrival. Pt remains with his eyes closed for most of the visit. Pt's son Ramirez and daughter Cony at bedside. Offered gentle voice and answered questions. Family express appreciation of visit and report no concerns at this time. Spoke with Bedside OSITO Alcala and discussed case. Palliative Care will remain available.
--- NOTE | 2020-06-11 15:52 | NUR ---
PT CONTINUES RESTLESS @ X'S. FAMILY MEMBERS @ BEDSIDE STATE HE @ X'S ATTEMPTING OOB. HE CONTINUES IN DELIRIUM WHEN AWAKE. ATIVAN 2MG LIQUID GIVEN FOR ANXIETY RELIEF, FAMILY STATE SATISFACTION. COMFORT CARE CONTINUES. PASTORAL CARE IN TO VISIT w PT/FAMILY.
--- NOTE | 2020-06-11 15:56 | NUR ---
FAMILY HAS LEFT. PT RESTING/SLEEPING. NO S/S PAIN @ THIS TIME.
--- NOTE | 2020-06-11 18:07 | NUR ---
Spiritual care note: Mr. Gutierrez' son and dtr were at bedside. Son appeared guarded and did not want to engage with speed winder. Dtr more pleasant, but also showed signs of polite dismissiveness. Non-baptist. Ordered comfort cart for room and paramjit comfortable chair for family. Pt was non-responsive. I will remain available.
--- NOTE | 2020-06-11 18:08 | NUR ---
FAMILY CONTINUES @ BEDSIDE. PT CONTINUES LETHARGIC, MOSTLY NONRESPONSIVE. RESP RATE APPROX 20-24 w APNEA @ X'S. MILD MOANING NOTED, DISCUSSED w FAMILY, THEY FEEL POSSIBLY SYMPTOM OF PAIN/DISCOMFORT. PRN ROXANOL GIVEN. WILL CONTINUE TO MX & PROVIDE COMFORT CARE.
--- NOTE | 2020-06-12 04:45 | NUR ---
SHIFT SUMMARY- PT. ON COMFORT CARE. MEDICATED FOR PAIN 2X LAST NIGHT, APPEARED TO HAVE RESTED COMFORTABLY DURING THE NIGHT, NO APPARENT DISTRESS NOTED. REPOSITIONED FOR COMFORT AND PRN. PT. DOES NOT RESPOND DURING CARE AND HAVING EPISODES OF APNEA. WILL CONT TO MONITOR.
--- NOTE | 2020-06-12 07:40 | NUR ---
AM ASSESSMENT PT IS NONRESPONSIVE, NO LONGER OPENS EYES TO VERBAL STIM. DEEP AGONAL RESPIRATIONS w INTERMITTANT/FREQUENT APNEAS. HRR APPROX 100. SKIN WARM NO DIAPHORESIS. NATHAN CATH PATENT, GIANCARLO MORGAN AMT DRK LAUREN/TEA COLORED URINE. NO S/S PAIN/DISCOMFORT @ THIS TIME. WILL MX & PROVIDEN COMFORT CARE.
--- NOTE | 2020-06-12 09:09 | NUR ---
dr orozco round on pt, provided update. he continues nonresponsive. no s/s pain/discomfort.
--- NOTE | 2020-06-12 12:33 | NUR ---
COMPUGRAPH OPERATOR PROVIDE ORAL CARE. PT CONTINUES NONRESPONSIVE, NO S/S PAIN/DISCOMFORT, R/R APPROX 8/MIN w APNEAS. PT STEP-DAUGHTER THANH IN TO VISIT, PROVIDED UPDATE, SHE STATE SATISFACTION w CARE.
--- NOTE | 2020-06-12 12:36 | NUR ---
SON & DAUGHTER HERE TO BE W PT. HE CONTINUES NONRESPONSIVE, DEEP AGONAL BREATHING w APNEA, RATE CONTINUES TO SLOW. NO S/S PAIN/DISCOMFORT. FAMILY PROVIDED UPDATE, STATE NO NEEDS @ THIS TIME. WILL CONT TO MX.
--- NOTE | 2020-06-12 13:22 | NUR ---
Comfort Care Visit Pt resting in bed and is non responsvie to verbal stimuli. Periods of apnea noted. Family at bedside. Provided gentle education of possible S/S Pt may experience. Family reports no concerns at this time. Spoke with Bedside RN Fredrick and discussed case. No concerns reported at this time. Palliative Care will remain available.
--- NOTE | 2020-06-12 16:35 | NUR ---
PT CONTINUES NONRESPONSIVE, FAMILY @ BEDSIDE. NO S/S PAIN/DISCOMFORT. BREATHING CONTINUES AGONAL w APNEAS. NO URINE OUTPUT NOTED.
--- NOTE | 2020-06-12 17:09 | NUR ---
ORAL CARE, LIGHT BEDBATH, REPOSITIONING PROVIDED. PT CONT NONRESPONSIVE. PRN ROXANOL 5MG GIVEN DURING PT CARE TO PREVENT PAIN w MOVEMENT. FAMILY CONT @ BEDSIDE.
--- NOTE | 2020-06-12 18:50 | NUR ---
family out for the noc. contact # on white board
--- NOTE | 2020-06-12 19:51 | NUR ---
COMFORT: pATIENT IS RESTING WITH EYE'S CLOSED, UNRESONSIVE AT THIS TIME. RESPIRATIONS ARE AT 8 WITH 15 SEC. PERIODS OF APNEA. T&P AND PERSONAL CARE ARE GIVEN.
--- NOTE | 2020-06-12 22:42 | NUR ---
COMFORT: PATIENT IS RESTING WITH EYE'S CLOSED. NO S/S OF PAIN OR DISCOMFORT. RESPIRATIONS ARE AT 6 WITH 10 SEC. PERIODS OF APNEA.
--- NOTE | 2020-06-12 23:49 | NUR ---
COMFORT: PATIENT CONTINUES TO REST QUIETLY WITH EYE'S CLOSED. RESPIRATIONS ARE AT 4 WITH 15 SEC. PERIODS OF APNEA. RESPIRATIONS ARE WET, ATROPINE GTT ARE GIVEN.
--- NOTE | 2020-06-13 03:25 | NUR ---
COMFORT: PATIENT IS RESTING WITH EYE'S CLOSED. NO S/S OF DISCOMFORT. RESPIRATIONS ARE AT 6 WITH 10 SEC PERIODS OF APNEA.
--- NOTE | 2020-06-13 05:20 | NUR ---
SHIFT SUMMARY: PATIENT CONTINUES TO BE UNRESPONSIVE, NO S/S OF DISCOMFORT. RESPIRATIONS ARE WET, SECRETIONS TO FAR DOWN TO SUCTION. ATROPINE GTT ARE GIVEN AND HOB IS ELEVATED. T&P, PERSONAL CARE AND EMOTIONAL SUPPORT IS GIVEN Q2H AND PRN THROUGH SHIFT. RESPIRATIONS ARE AT 5 WITH 15 SEC PERIODS OF APNEA.
--- NOTE | 2020-06-13 13:55 | NUR ---
Comfort Care Visit Pt resting in bed with his eyes closed. Pt non responsive and appears comfortable with no S/S of distress at this time. Palliative Care will remain available
--- NOTE | 2020-06-13 17:37 | NUR ---
SHIFT SUMMARY- PT HAS BEEN ASLEEP THROUGHOUT THIS SHIFT. HE APPEARS TO BE COMFORTABLE. FAMILY AT BEDSIDE. HE HAS PERIODS OF 10-15 SECONDS OF APENIA. HIS BED IS IN THE LOW POSITION AND CALL LIGHT IS WITHIN REACH.
--- NOTE | 2020-06-14 05:50 | NUR ---
SHIFT SUMMARY PATIENT UNRESPONSIVE AT THIS POING TO ALL STIMULUS EXCEPT FOR SOME PAIN WHEN REPOSITIONING. PATIENT HAS LONG PERIODS OF APNEA AND HAS SHALLOW BREATHING. NATHAN PATENT AND DRAINING TO GRAVITY. BED IN LOWEST POSITION WITH WHEELS LOCKED AND ALARM ON. CALL LIGHT WITHIN REACH. REPORT GIVEN TO ONCOMING RN.
--- NOTE | 2020-06-14 09:58 | NUR ---
Comfort Care Visit Pt resting in bed with his eyes closed upon arrival. Pt remains with his eyes closed with verbal stimuli. Pt appears comfortable with no S/S of distress at this time. Palliative Care will remain available.
--- NOTE | 2020-06-14 15:41 | NUR ---
CARE TRANSFERRED TO MORRIS LORENZ RN AT 1530
--- NOTE | 2020-06-14 18:45 | NUR ---
SHIFT SUMMARY ASSUMED CARE OF PT AT 1530 WHEN PT MOVED TO ROOM 341. PT RESTING COMFORTABLY, NO SYMPTOMS OF PAIN/ANXIETY. FAMILY AT BEDSIDE IN THE AFTERNOON. NATHAN C/D/I. FREQUENT CHECKS, WCTM
--- NOTE | 2020-06-15 03:57 | NUR ---
SHIFT SUMMARY PATIENT ON COMFORT CARE RESTING IN BED WITH NO S/SX OF PAIN, ANXIETY, AND N/V. NPO. RESPONDED VERBALLY TO ONE POSITIONAL CHANGE, OTHERWISE UNREPSONSIVE. VENITA PATENT AND DRAINING. DANIELLA. DORINAARE DONE T/O SHIFT. CALL LIGHT IN REACH. BED IN LOWEST POSITION AND ALARM ACTIVATED. WILL CONTINUE TO MONITOR UNTIL DAY SHIFT NURSE ASSUMES CARE.
--- NOTE | 2020-06-15 11:28 | NUR ---
Review of patient with nursing. pt apears to be transitioning. Pt having slough from his coxxyx and some muscle tightening review of prn meds with staff.
--- NOTE | 2020-06-15 18:37 | NUR ---
SHIFT SUMMARY LOOKED PAINFUL IN THE MORNING AND GOT A FEW DOSES OF ROXANOL. WAS MORE AWAKE THIS MORNING, RESPONDED TO HIS NAME ONCE, OPENED HIS EYES MORE. RESTING COMFORTABLY THIS EVENING. VERY INFREQUENT RESPIRATIONS. ATTEMPTED TO REMOVE COCCYX MEPILEX DUE TO SOME DRAINAGE, BUT HIS SKIN STARTED COMING OFF WITH IT, SO LEFT IT IN PLACE PT APPEARS TO BE IMMINENT. REGULAR TURNS PERFORMED. NATHAN CARE AND ORAL CARE DONE. FREQUENT CHECKS PERFORMED.
--- NOTE | 2020-06-15 19:41 | NUR ---
CALL TO JEANNE SAENZNS, PT'S , PER HER REQUEST. UPDATED ON PT CONDITION. PT APPEARS COMFORTABLE AT THIS TIME. IS RESTING QUIETLY, RESPS REGULAR, NON-LABORED. F/C PATENT AND DRAINING URINE TO GRAVITY.
--- NOTE | 2020-06-16 05:20 | NUR ---
COMFORT CARE: PT REMAINS ON COMFORT CARE STATUS. GRIMACING W/ MOVEMENT ONLY. MED FOR PAIN PRN PER ORDERS. RESPS REGULAR, EVEN, NON-LABORED. F/C PATENT AND DRAINING DARK, CONCENTRATED, URINE IN VERY SMALL AMTS. PT APPEARS TO BE SLEEPING WELL BETWEEN REPOSITIONINGS. APPEARS COMFORTABLE AND CALM.
--- NOTE | 2020-06-16 07:39 | NUR ---
AM ASSESSMENT- PT COMFORT CARE PT. PT LYING IN BED APPEARS COMFORTBALE, PT DOES NOT RESPOND TO VERBAL STIMULI. RESP E/U. LS COARSE T/O, ON RA. WOUNDS TO SACRAL/BUTTOCK AREA, WITH BRUISING T/O. HEEL PROTECTORS IN PLACE. NATHAN IN PLACE DRAINING DARK LAUREN URINE WITH MININIMAL OUTPUT. WILL CONT TO MONITOR.
--- NOTE | 2020-06-16 17:26 | NUR ---
SHIFT SUMMARY- PT ON COMFORT CARE. PT APPEARS COMFORTABLE T/O THE DAY WHEN AT REST, PT NOTED TO HAVE DISCOMFORT WITH REPOSITIONING, PRN ROXANOL GIVEN. LS COARSE, ON RA. RESP HAVE DECREASED T/O THE DAY. VERY MINIMAL URINE OUTPUT T/O THE DAY. NO FAMILY IN TO SEE PT TODAY.
--- NOTE | 2020-06-17 06:13 | NUR ---
SHIFT SUMMARY: COMFORT CARE STATUS. PT REMAINS MOSTLY UNRESPONSIVE, EXCEPT TO GRIMACE SOME W/ TURNS AND PINCHES MOUTH SHUT OVER ROXANOL SYRINGE AND ORAL CARE ATTEMPTS. RESPS SLOW, NON-LABORED. PT APPEARS COMFORTABLE AND RELAXED.
--- NOTE | 2020-06-17 07:19 | NUR ---
AM ASSESSMENT- PT ON COMFORT CARE. PT LYING IN BED WITH EYES CLOSED, DOES NOT RESPOND TO VERBAL STIMULI. PT APPEARS COMFORTABLE AT THIS TIME. RESPIRATIONS SHALLOW AND IRREGULAR. LS COARSE, ON RA. NATHAN DRAINING SCANT DARK URINE. WILL CONT TO MONITOR.
--- NOTE | 2020-06-17 16:38 | NUR ---
SHIFT SUMMARY- PT COMFORT CARE. PT MEDICATED FOR COMFORT. NO APPARENT DISCOMFORT NOTED WITH REST BUT DOES SLIGHTLY MOAN WITH REPOSITIONING. LS COARSE, ON RA. PT HAS MOMENTS OF LONG PAUSES, RESP IRREGULAR. BRUISING T/O. WOUND TO COCCYX. TURN Q2H. DAUGHTER IN TODAY TO SEE PT, AND SON UPDATED VIA PHONE. NATHAN WITH APROX 20ML DARK URINE OUTPUT.
--- NOTE | 2020-06-18 04:39 | NUR ---
COMFORT CARE: PT REMAINS ON COMFORT CARE STATUS. UNRESPONSIVE EXCEPT SOME MOVEMENT, GRIMACING, AND ATTEMPTS TO OPEN EYES W/ TURNS. PT MEDICATED PROACTIVELY W/ ROXANOL. HAS APPEARED TO HAVE SLEPT THROUGH MOST OF THE NIGHT. RESPS SLOW AND IRREGULAR. PT APPEARS CALM AND COMFORTABLE AT REST. WCTM.
--- NOTE | 2020-06-18 09:31 | NUR ---
THE PATIENT'S SON CALLED FOR AN UPDATE. NO SIGN OF PAIN.
--- NOTE | 2020-06-18 09:31 | NUR ---
NO SIGN OF PAIN
--- NOTE | 2020-06-18 12:22 | NUR ---
PATIENT RESPONDS TO RN'D VOICE. RN ASKED IF HE IS IN PAIN, PATIENT NODDED "NO". ORAL CARE COMPLETED.
--- NOTE | 2020-06-18 13:07 | NUR ---
PATIENT REPOSTIONED. PAIN MANAGED PER EMAR. PATIENT'S EYES ARE OPEN. WILL NOD TO ANSWER QUESTIONS
--- NOTE | 2020-06-18 16:22 | NUR ---
PATIENT ASLEEP. NO SIGNS OF PAIN
--- NOTE | 2020-06-18 17:02 | NUR ---
Spiritual care note: Fabien was mostly non-responsive. He did open eyes and grimace when moved/touched. I sat bedside him quietly, holding his hand. Long pauses between breaths--up to 30 seconds. Raspy. He appears to be very near end-of-life. No family present throughout the day, as I stopped in whenever I had a few minutes. Per chart, he is not yazidism, so I did not audibly pray. I will remain available.
--- NOTE | 2020-06-18 17:52 | NUR ---
PATIENT RESPONDS TO TOUCH OR WHEN SPOKEN TO. HE WILL NOD "YES" OR "NO". THE PATIENT'S SON, VALE CALLED FOR AN UPDATE THIS MORNING. NO VISITORS TODAY. ORAL CARE PERFORMED. NATHAN IN PLACE, PATENT AND DRAINING. REPOSITIONED IN BED WITH PILLOWS. WILL CONTINUE TO MONITOR.
--- NOTE | 2020-06-18 20:00 | NUR ---
No grimace or air hunger noted. repeirations are slowing with longer pauses. reassess tomorrow if we should move him towards home. will talk with family he may be waiting for someone to visit.
--- NOTE | 2020-06-18 22:45 | NUR ---
pt WITH LARGE WOUND SACRAL AREA. MOD AMT OF SEROSANG DRAINAGE PRESENT. MEDICATING NOW FOR PAIN WITH ACTIVITY.
--- NOTE | 2020-06-19 09:50 | NUR ---
NON RESPONSIVE. FAMILY PRESENT. NO DISTRESS NOTED.
--- NOTE | 2020-06-19 11:33 | NUR ---
PT . CHARGE NURSE NOTIFIED. PASTORAL CARE IN ROOM WITH RN. FAMILY NOTIFIED.
--- NOTE | 2020-06-19 17:48 | NUR ---
Spiritual care note: Present at [facility]. Fabien passed peacefully. I called step-dtr, Yolanda, who was with Fabien's , Yolanda. Informed of pt's passing. They selected [facility] for final arrangements.
== END 2020-06-19 11:26 ==
LOC: ER 10:47 → MEDS 10:48
PROVIDERS: Emergency Medicine; ADMIT Internal Medicine
DX: K70.40 Alcoholic hepatic failure without coma (principal); K70.31 Alcoholic cirrhosis of liver with ascites; N17.9 Acute kidney failure, unspecified; F10.288 Alcohol dependence with other alcohol-induced disorder; N18.30 Chronic kidney disease, stage 3 unspecified; E87.2 Acidosis; D64.9 Anemia, unspecified; J90 Pleural effusion, not elsewhere classified; Z66 Do not resuscitate; Z51.5 Encounter for palliative care; F17.200 Nicotine dependence, unspecified, uncomplicated; Z91.038 Other insect allergy status; Z20.822 Contact with and (suspected) exposure to COVID-19
CPT/HCPCS: 0241U; 36415; 36600; 51702; 70450; 71045; 80053; 81001; 82140; 82272; 82803; 82947; 83605; 85025; 86850; 86900; 86901; 87040; 87077; 87086; 87186; 93005; 93010; 96361-59; 96365-59; 96366-59; 96368; 96375; 96376; 99285-25; A9270; G0378; G0480; J0456; J0696; J2060; J2270; J7030; J7050